=== PATIENT | male | born 1955 | race Caucasian/White ===

== ENCOUNTER 2020-06-21 11:50 | Day surgery (SDC) | payer BC ==
[2020-06-21] MEDS ORDERED: Xylocaine 1% Vial 30 ML PF IJ ONE (11:51)
[2020-06-21] MEDS ORDERED: Marcaine 0.5% SDV 10 ML IJ ONE (11:51)
[2020-06-21] MEDS ORDERED: Depo-Medrol 40 MG/ML IM ONE (11:51)
--- NOTE | 2020-06-24 18:34 | XRAY ---
Indication: Right SI joint injection. Intraoperative fluoroscopy was provided for 8 seconds. PA and lateral digital spot images reveal a spinal needle tip in the projection of the lower right SI joint. Correlate with intraoperative findings/report.
--- NOTE | 2020-06-26 07:56 | XRAY ---
8 seconds fluoroscopy time in surgery for right SI joint injection.
== END 2020-06-21 14:04 | disposition home or self-care (01) ==
LOC: SDC-PAIN 11:50
PROVIDERS: ATTEND Psychiatry & Neurology Pain Medicine
DX: M46.1 Sacroiliitis, not elsewhere classified (principal); E11.9 Type 2 diabetes mellitus without complications; I10 Essential (primary) hypertension; G47.30 Sleep apnea, unspecified; Z79.899 Other long term (current) drug therapy
CPT/HCPCS: 64625; 72020; 77002; 82962; J1030; J2001

== ENCOUNTER 2020-07-19 09:13 | Day surgery (SDC) | payer BC ==
[2020-07-19] MEDS ORDERED: Xylocaine 1% Vial 30 ML PF IJ ONE ×2 (09:14)
[2020-07-19] MEDS ORDERED: BUPIVACAINE 0.5% VIAL IJ ONE (09:14)
[2020-07-19] MEDS ORDERED: Decadron 4 MG INJ IV ONE (09:14)
[2020-07-19] MEDS ORDERED: DIPRIVAN 200 MG/20 ML IV ONE (10:42)
[2020-07-19] MEDS ORDERED: Ketamine HCl 50 MG/ML ONE (10:42)
--- NOTE | 2020-07-19 14:08 | XRAY ---
Indication: Right piriformis muscle injection. Intraoperative fluoroscopy was provided for 28 seconds. Single digital spot image submitted for interpretation demonstrates posterior needle tip projecting over expected right piriformis muscle. Small amount of contrast injected for needle tip placement. Correlate with intraoperative findings/report.
[2020-07-19] MEDS ORDERED: Lactated Ringers 1,000 ML IV ONE (14:25)
--- NOTE | 2020-07-19 15:02 | XRAY ---
28 seconds fluoroscopy time in surgery for right piriformis muscle injection.
== END 2020-07-19 11:10 | disposition home or self-care (01) ==
LOC: SDC-PAIN 09:13
PROVIDERS: ATTEND Psychiatry & Neurology Pain Medicine
DX: M79.18 Myalgia, other site (principal); E11.9 Type 2 diabetes mellitus without complications; I10 Essential (primary) hypertension; G47.30 Sleep apnea, unspecified; Z79.899 Other long term (current) drug therapy
CPT/HCPCS: 20552; 72020; 77002; 82962; J1100; J2001; J2704; Q9966